=== PATIENT | male | born 1965 | race Caucasian/White ===

== ENCOUNTER → 2016-11-23 | Outpatient (CLI) | payer OTHER ==
[~2016-11-23] MED LIST: ASPI81TA2 PO; BUDE10.22 IH; DEXL30CA PO; DILT180T3 PO; DULO20CA PO; FLEC100T PO; IPRA4AER IH; MONT10TA9 PO; ROFL500T PO; SIMV40TA3 PO; TAMS0.4C97 PO
--- NOTE | 2016-11-23 12:13 | RAD ---
Exam performed: 2 views of the chest. Indication: SHORTNESS OF AIR. Date of Service:11/23/2016 2:00 AM . Comparison : None available. Findings: PA and lateral radiographs of the chest reveal a normal cardiomediastinal contour. The lungs are clear. No pleural fluid is seen. The visualized osseous structures are unremarkable. Impression: Radiographically normal chest.
== END | disposition home or self-care (01) ==
LOC: RAD 10:28
PROVIDERS: ATTEND Internal Medicine Critical Care Medicine
DX: R06.02 Shortness of breath (principal)
CPT/HCPCS: 71020

== ENCOUNTER → 2017-02-11 | Outpatient (CLI) | payer OTHER ==
--- NOTE | 2017-02-11 09:20 | RAD ---
Indication follow-up lung nodule. Noncontrast imaging through the chest was performed and is compared to an exam 10/08/2016. Imaging through the upper abdomen is unremarkable. Mild mediastinal adenopathy is noted unchanged. Underlying emphysematous changes are seen. Some scarring in the right upper lobe persists. The associated air cavity appears slightly smaller on today's exam measuring approximately 4.5 mm in greatest dimension whereas previously it measured 5.5. A dominant soft tissue mass is not seen. Acute finding is not apparent. No new finding is seen. IMPRESSION: No acute finding in the chest. No new finding seen. Scarring with an associated air cavity in the right upper lobe is redemonstrated but appear slightly smaller PQRS Compliance Statement: One or more of the following individualized dose reduction techniques were utilized for this examination: 1. Automated exposure control 2. Adjustment of the mA and/or kV according to patient size 3. Use of iterative reconstruction technique
== END | disposition home or self-care (01) ==
LOC: CT 10:52
PROVIDERS: ATTEND Internal Medicine Critical Care Medicine
DX: R91.1 Solitary pulmonary nodule (principal)
CPT/HCPCS: 71250